=== PATIENT | female | born 1975 | race Caucasian/White ===

== ENCOUNTER 2021-05-25 16:29 | Emergency (ER) | payer BC, MEDICARE, SELFPAY ==
[2021-05-25] VITALS (29 sets, daily range): BP systolic 81–129; BP diastolic 52–80; PULSE 60–96; RESP 10–25; TEMP 36.9; O2SAT 95–100; BMI 27.4
--- NOTE | 2021-05-25 16:35 | DI.RAD.S_ITS ---
PROCEDURE: XR ANKLE RT 2V INDICATIONS: +deformity/fall hiking TECHNIQUE: 2 views of the ankle were acquired. COMPARISON: None. FINDINGS: Bones: There is a fracture dislocation involving the ankle region, with the lateral malleolus fractured across its base at the identical axial level of the tibial plafond, and rotated medially to underlie the distal tibial plafond. The talar dome is dislocated medially, and tilted medially. There is a fracture dislocation of the medial malleolus at its upper aspect, rotated and deviated medially by the talar dome. Ankle mortise is normally aligned. No suspicious bony lesions. Soft tissues: No tibiotalar joint effusion. Achilles tendon appears normal. IMPRESSION: Severe fracture dislocations as discussed above, orthopedic consultation is anticipated. CT scanning to establish anatomic detail for surgical planning likely is warranted. Dictated by: Arnaldo Gilbert M.D. on 05/25/2021 at 17:02 Approved by: Arnaldo Gilbert M.D. on 05/25/2021 at 17:04
[2021-05-25] MEDS: HYDROMORPHONE 0.5 MG INJ IV (17:11)
--- NOTE | 2021-05-25 18:33 | ED_ITS ---
HPI - Extremity Injury (Lower) General Chief Complaint: Extremity Injury, Lower Stated Complaint: closed ankle injury Time Seen by Provider: 05/25/21 16:54 Source: patient Mode of arrival: EMS Limitations: no limitations History of Present Illness HPI Narrative: This is a 45-year-old female who comes emergency department with injury to her right ankle. Patient was hiking at [facility] when she scramble down a piece of slab rock slid and fell on a rock. Her only other injury is she scraped her nose. Patient denies hitting her head. She denies any neck or back pain. No loss of consciousness. No chest pain or shortness of breath no nausea or vomiting. No other GI or urinary symptoms. Patient has obvious deformity of her right ankle she has some mild. She does have sensation to touch. Patient states she takes medication for mood. She states her only allergies are to Risperdal. She has had anesthesia in the past and states she tolerated it well. This was for trigger finger. Related Data Previous Rx's Medication Instructions Recorded cephalexin 500 mg capsule 500 mg PO Q6H #20 cap 05/25/21 oxycodone 5 mg tablet 5 mg PO Q6H PRN #20 tab 05/25/21 Allergies Allergy/AdvReac Type Severity Reaction Status Date / Time risperidone [From Risperdal] Allergy Unknown Verified 05/25/21 20:22 Review of Systems Review of Systems ROS Unobtainable: All systems reviewed & are unremarkable except as noted in HPI and below Exam Narrative Exam Narrative: GEN: well nourished, well appearing female, alert and oriented x 3, patient appears to be in mild distress. HEENT: Atraumatic, pupils are equal round reactive to light, extraocular movements are intact, nares are clear, abrasion to nose, TMs are clear with no fluidr. Throat is clear without any exudates, erythema, tonsillar enlargement or uvular deviation HEART: Regular rate and rhythm without murmur, clicks, rubs. Pulses are equal in upper and lower extremities LUNGS:Lungs clear to auscultation, no wheezes, rales, crackles, chest moves symmetrically ABD:bowel sounds normal, soft, non-tender, no guarding, rebound, rigidity, no masses noted, no hepatosplenomegaly :No CVA tenderness MSCL: Patient has obvious deformity of her right ankle, she does have palpable pulse at the dorsalis pedis. She has sensation to light touch in can wiggle her toes. Patient has normal movement of all other 4 extremities with 2+ pulses. And normal strength intact.. NEURO:CN 2-12 intact, sensation normal SKIN: Patient does have some erythema and abrasion over the right knee patient also has abrasion over the right lateral malleoli but no puncture wound. Initial Vital Signs Initial Vital Signs: Vital Signs Pulse Rate 96 H 05/25/21 16:30 Blood Pressure 120/77 05/25/21 16:30 Pulse Oximetry 99 05/25/21 16:30 Procedures Orthopedic Fracture Reduction Fracture #1: Time Out Performed: Yes Side: right Fracture Reduction Location: tibia and fibula Analgesia: procedural sedation Technique: direct manipulation and traction/counter-traction Post Reduction X-rays Demonstrate: acceptable reduction Post-reduction neuro exam: intact Post-reduction vascular exam: intact Splint Applied: Yes Patient Tolerated Procedure: Well Procedural Sedation Consent signed: Yes Time out performed: Yes Indication: fracture/dislocation reduction ASA Class: II Mallampati Airway Classification: Class II Time of Last PO Intake: 12:00 Ketamine: IV Ketamine dose (mg): 70 ED Sedation Level: Moderate (Concious) Patient Tolerated Procedure: Well Course Orders Ordered: Discontinued Medications Cephalexin HCl (Cephalexin 250 Mg Capsule) 500 mg PO NOW ONE Stop: 05/25/21 20:18 Last Admin: 05/25/21 21:05 Dose: 500 mg Documented by: [email or web address] Diphtheria/Tetanus/Acell Pertussis (Tet,Diph,Pertuss(Acell),Vac/Pf 0.5 Ml Syringe) 0.5 ml IM .ONCE ONE Stop: 05/25/21 20:05 Last Admin: 05/25/21 21:02 Dose: 0.5 ml Documented by: [email or web address] Hydromorphone HCl (Hydromorphone 0.5 Mg Inj) 0.5 mg IV NOW ONE Stop: 05/25/21 16:54 Last Admin: 05/25/21 17:11 Dose: 0.5 mg Documented by: [email or web address] Hydromorphone HCl (Hydromorphone 0.5 Mg Inj) 0.5 mg IV NOW ONE Stop: 05/25/21 18:38 Last Admin: 05/25/21 21:05 Dose: Not Given Documented by: [email or web address] Ketamine HCl (Ketamine 500 Mg/5 Ml Inj) 70 mg 1 mg/kg (70 mg) IV NOW ONE Stop: 05/25/21 18:38 Last Admin: 05/25/21 19:51 Dose: 70 mg Documented by: [email or web address] Ondansetron HCl (Ondansetron 4 Mg/2 Ml Inj) 4 mg IV NOW ONE Stop: 05/25/21 21:13 Last Admin: 05/25/21 21:56 Dose: Not Given Documented by: RON Oxycodone/Acetaminophen (Oxycodone/Apap 5/325 Prepack) 1 bottle MISC SEEINSTR ONE Stop: 05/25/21 21:12 Last Admin: 05/25/21 21:50 Dose: 1 bottle Documented by: RON Consultations Consultation #1: Dr. Mosley, orthopedic surgery. F/u in the week for recheck. Vital Signs Vital signs: Vital Signs - 8 hr 05/25/21 16:30 05/25/21 16:33 05/25/21 17:00 Temperature 98.4 F Pulse Rate 96 H 92 H 84 Respiratory Rate 16 Blood Pressure 120/77 129/77 Pulse Oximetry 99 98 100 05/25/21 17:30 Temperature Pulse Rate 85 Respiratory Rate Blood Pressure Pulse Oximetry 97 MDM - Extremity Injury (Lower) Lab Data Labs: Lab Results 05/25/21 Range/Units 17:15 SARS-CoV-2 (PCR) Negative (Negative) Imaging Data Extremity x-ray #1: Radiologist's Impression: Nora Carter 45 F [address] [id number] ReportSigned Patient: Nora CarterMR#: [id number]: 1975Acct:[id number]/Sex: 45 / FDate of Service: 05/25/21Loc: EDAccession Number: [id number] Procedure: XR ankle RT 2V Ordering Provider: Bhumika Saunders D.O. PROCEDURE: XR ANKLE RT 2V INDICATIONS: +deformity/fall hiking TECHNIQUE: 2 views of the ankle were acquired. COMPARISON: None. FINDINGS: Bones: There is a fracture dislocation involving the ankle region, with the lateral malleolus fractured across its base at the identical axial level of the tibial plafond, and rotated medially to underlie the distal tibial plafond. The talar dome is dislocated medially, and tilted medially. There is a fracture dislocation of the medial malleolus at its upper aspect, rotated and deviated medially by the talar dome. Ankle mortise is normally aligned. No suspicious bony lesions. Soft tissues: No tibiotalar joint effusion. Achilles tendon appears normal. IMPRESSION: Severe fracture dislocations as discussed above, orthopedic consultation is anticipated. CT scanning to establish anatomic detail for surgical planning likely is warranted. Dictated by: Arnaldo Gilbert M.D. on 05/25/2021 at 17:02 Approved by: Arnaldo Gilbert M.D. on 05/25/2021 at 17:0 Extremity x-ray #2: Radiologist's Impression: [address] [id number] ReportSigned Patient: Aysha Carter#: [id number]: 1975Acct:[id number]/Sex: 45 / FDate of Service: 05/25/21Loc: EDAccession Number: [id number] Procedure: XR ankle RT 2V Ordering Provider: Eduarda Alcocer D.O. PROCEDURE: XR ANKLE RT 2V INDICATIONS: reduction TECHNIQUE: 2 views of the ankle were acquired. COMPARISON: [facility], , XR ANKLE RT 2V, 05/25/2021, 16:39. FINDINGS: Bones: There is slightly improved alignment status post closed reduction of a fracture through the medial distal tibia involving the tibial plafond and extending to the tibiotalar joint. There is also improved alignment of a transverse fracture through the distal fibula. There is persistent disruption of the ankle mortise. There is a suspected fracture of the posterior malleolus. Soft tissues: There is an external splint limiting evaluation of the soft tissues. IMPRESSION: 1. Improved alignment status post closed reduction of previously visualized fracture-dislocation of the right ankle. Dictated by: Philipp Diallo M.D. on 05/25/2021 at 20:25 Approved by: Philipp Diallo M.D. on 05/25/2021 at 20:27 [facility] Narrative Medical decision making narrative: This is a 45-year-old female with with ankle fracture. Patient does not have an open fracture but does have an abrasion over the lateral malleoli. Patient was started on oral antibiotics. Patient had conscious sedation with reduction and splint her fracture. Orthopedic surgery was consulted and asked for follow-up this week. Patient was given a disc as well as prescription for pain medication, antibiotics and referral to local orthopedic surgery. Patient lives in [place]. They were given discs in imaging if they choose to return home at a shorter interval versus follow-up with our orthopedic surgery. Discharge Plan Departure Patient Disposition: Home Clinical Impression: Ankle fracture Instructions: DI for Ankle Fracture Activity Restrictions/Additional Instructions: Follow-up with orthopedic surgery this week for recheck and for surgical repair. Can call tomorrow for an appointment. Below is referral to Dr. Mosley but you can follow with anyone in the group. Also included is a disc of your images if you prefer to follow-up in [place] with her orthopedic surgeon of choice. If you do not have someone you can call your primary care physician for a referral. Take antibiotics until completely gone. You may take Tylenol up to a 1000 mg every 8 hours as needed for pain. If this is an adequate you may take narcotic pain medication as prescribed. Take pain medication as prescribed. This medication can make you sleepy do not drive, perform hazardous activities or make any major decisions while taking it. This medication will make you constipated please take a stool softener once to twice daily until stools are soft and regular. Prescriptions were sent to [facility] in [facility]. Splint Care: Keep splint clean and dry. Elevated affected body part to decrease swelling. OK to use ice pack on the affected body part. Use for 15-20 minutes each time, for 5-6x per day. If you develop worsening pain, numbness, tingling, discoloration of the affected body part, loosen the splint by loosening the CAMERON wrap, and either see your doctor for an urgent re-assessment, or return to the Emergency Department. Return to the Emergency Department for any new or worsening symptoms. Prescriptions: New oxycodone 5 mg tablet 5 mg PO Q6H PRN (Reason: pain) Qty: 20 RF: 0 cephalexin 500 mg capsule 500 mg PO Q6H Qty: 20 RF: 0 Referrals: Ezequiel Mosley MD [Physician] -
[2021-05-25 18:45] LABS: COVID19 -Nasal RAPID Negative (Negative)
[2021-05-25] MEDS: KETAMINE 500 MG/5 ML INJ 70 MG IV (19:51)
--- NOTE | 2021-05-25 19:59 | DI.RAD.S_ITS ---
PROCEDURE: XR ANKLE RT 2V INDICATIONS: reduction TECHNIQUE: 2 views of the ankle were acquired. COMPARISON: [facility], CR, XR ANKLE RT 2V, 05/25/2021, 16:39. FINDINGS: Bones: There is slightly improved alignment status post closed reduction of a fracture through the medial distal tibia involving the tibial plafond and extending to the tibiotalar joint. There is also improved alignment of a transverse fracture through the distal fibula. There is persistent disruption of the ankle mortise. There is a suspected fracture of the posterior malleolus. Soft tissues: There is an external splint limiting evaluation of the soft tissues. IMPRESSION: 1. Improved alignment status post closed reduction of previously visualized fracture-dislocation of the right ankle. Dictated by: Philipp Diallo M.D. on 05/25/2021 at 20:25 Approved by: Philipp Diallo M.D. on 05/25/2021 at 20:27
[2021-05-25] MEDS: TET,DIPH,PERTUSS(ACELL),VAC/PF 0.5 ML SYRINGE IM (21:02)
[2021-05-25] MEDS: cephALEXin 250 MG CAPSULE 500 MG PO (21:05)
[2021-05-25] MEDS: ONDANSETRON 4 MG/2 ML INJ (21:13)
[2021-05-25] MEDS: OXYCODONE/APAP 5/325 PREPACK 1 BOTTLE MISC (21:50)
--- NOTE | 2021-06-25 13:54 | PC.NURSE ---
late entry- per RN IV fluids were DC'd when the IV was DC'd at 2200
--- NOTE | 2021-06-25 13:58 | PC.NURSE ---
late entry- per RN conscious sedation stop time 2030
== END 2021-05-25 22:20 | disposition home or self-care (01) ==
PROVIDERS: Emergency Provider Emergency Medicine
DX: S82.891A Other fracture of right lower leg, initial encounter for closed fracture (principal); W19.XXXA Unspecified fall, initial encounter; Z23 Encounter for immunization
CPT/HCPCS: 27752; 73600; 87635; 90471; 96374; 96375; 99152; 99153; 99284; 99285; C9803; 90715; J1170; J2405